=== PATIENT | male | born 1975 | race Caucasian/White ===

== ENCOUNTER 2019-05-09 19:57 | Inpatient (IN) | payer MEDICAID ==
[2019-05-09 21:18] LABS: ADD MAN DIFF? NO
[2019-05-09 21:19] LABS: BASOPHILS % 0.2 % (0.0-2.0); EOSINOPHILS % 0.5 % (0.0-7.0); HEMATOCRIT 33.2 % (42.0-52.0); HEMOGLOBIN 9.9 g/dl (14.0-18.0); LYMPHOCYTES # 1.9 10^3/ul (0.8-2.9); LYMPHOCYTES % 23.7 % (15.0-51.0); MEAN CORPUSCULAR HEMOGLOBIN 23.7 pg (29.0-33.0); MEAN CORPUSCULAR HGB CONC 29.8 g/dl (32.0-37.0); MEAN CORPUSCULAR VOLUME 79.4 fl (82.0-101.0); MEAN PLATELET VOLUME 7.9 fl (7.4-10.4); MONOCYTE # 0.8 10^3/ul (0.3-0.9); MONOCYTES % 10.3 % (0.0-11.0); NEUTROPHILS % 61.5 % (39.0-77.0); PLATELET COUNT 706 10^3/UL (140-415); RED BLOOD COUNT 4.18 10^6/ul (4.70-6.10); RED CELL DISTRIBUTION WIDTH 20.3 % (11.5-14.5)
[2019-05-09 21:19] LABS: WHITE BLOOD COUNT 8.2 10^3/ul (4.8-10.8)
[2019-05-09] MEDS: ASPIRIN 81 MG TAB PO (21:21)
[2019-05-09 21:22] LABS: PATH REVIEW? YES
[2019-05-09] MEDS: NITROGLYCERIN 2% 1 GM OINT PKT TD (21:23)
[2019-05-09] MEDS: NITROGLYCERIN (SL) 0.4 MG TAB SL (21:23)
[2019-05-09 21:45] LABS: ANION GAP 8 (5-13); BLOOD UREA NITROGEN 17 mg/dl (7-20); CALCIUM 8.2 mg/dl (8.4-10.2); CARBON DIOXIDE 27 mmol/L (21-31); CHLORIDE 100 mmol/L (97-110); CREATININE 0.85 mg/dl (0.61-1.24); Estimated GFR > 60 mL/min (>60); GLUCOSE 117 mg/dl (70-220); POTASSIUM 4.1 mmol/L (3.5-5.1); SODIUM 135 mmol/L (135-144)
[2019-05-09 21:56] LABS: TROPONIN-I < 0.012 ng/ml (0.000-0.120)
[2019-05-09 22:32] LABS: ANISOCYTOSIS 1+ (0-0); BAND NEUTROPHILS #M 0.3 10^3/ul (0.0-0.6); BAND NEUTROPHILS % (M) 4 % (0-4); EOSINOPHILS % (M) 1 % (0-7); GIANT THROMBO% (M) 3 % (0-0); LYMPHOCYTES #M 2.5 10^3/ul (0.8-2.9); LYMPHOCYTES % (M) 31 % (15-51); MICROCYTOSIS 1+ (0-0); MONOCYTE #M 0.4 10^3/ul (0.3-0.9); MONOCYTES % (M) 5 % (0-11); OVALOCYTES 1+ (0-0); PLATELET ESTIMATE INCREASED; POIKILOCYTOSIS 1+ (0-0); POLYCHROMASIA 1+ (0-0); SEG NEUT #M 4.9 10^3/ul (1.6-7.5); SEGMENTED NEUTROPHILS (M) % 59 % (39-77); SMUDGE%M 25 % (0-0)
[2019-05-09] MEDS: morphine 4 MG/ML VIAL IV (22:52)
[2019-05-09] MEDS: ONDANSETRON 4 MG INJ IV (22:52)
[2019-05-09] MEDS ORDERED: ONDANSETRON 4 MG INJ IV (23:00)
[2019-05-10] MEDS: ACETAMINOPHEN 325 MG TAB PO ×4 (00:28→19:48)
[2019-05-10] MEDS ORDERED: NACL 0.9% 3 ML SYG IV (00:30)
[2019-05-10] MEDS ORDERED: NITROGLYCERIN (SL) 0.4 MG TAB SL (00:30)
[2019-05-10] MEDS ORDERED: HYDROCODONE/APAP (5/325) TAB PO ×3 (04:00→08:30)
[2019-05-10 04:08] LABS: CREATINE KINASE < 20 IU/L (23-200)
[2019-05-10 04:13] LABS: CK-MB < 0.22 ng/ml (0.0-2.4); TROPONIN-I < 0.012 ng/ml (0.000-0.120)
[2019-05-10] MEDS: KETOROLAC 30 MG INJ IV (04:22)
[2019-05-10] MEDS: PANTOPRAZOLE (EC) 40 MG TAB PO (05:53)
[2019-05-10] MEDS: ASPIRIN 81 MG TAB PO (08:06)
[2019-05-10] MEDS: MESALAMINE (EC) 400 MG CAP PO ×2 (08:07→20:30)
[2019-05-10] MEDS: HEPARIN 5,000 UNIT/1 ML VIAL SC ×2 (08:10→20:53)
[2019-05-10] MEDS ORDERED: NON-FORMULARY/PATIENT OWN MED (Omeprazole* 40 MG) PO (09:00)
[2019-05-10 09:08] LABS: CREATINE KINASE < 20 IU/L (23-200)
[2019-05-10 09:14] LABS: CK-MB < 0.22 ng/ml (0.0-2.4); TROPONIN-I < 0.012 ng/ml (0.000-0.120)
[2019-05-10 09:19] LABS: ADD MAN DIFF? NO
[2019-05-10 09:22] LABS: BASOPHILS % 0.2 % (0.0-2.0); EOSINOPHILS # 0.1 10^3/ul (0.0-0.5); HEMATOCRIT 30.5 % (42.0-52.0); LYMPHOCYTES # 1.4 10^3/ul (0.8-2.9); LYMPHOCYTES % 13.9 % (15.0-51.0); MEAN CORPUSCULAR HEMOGLOBIN 23.6 pg (29.0-33.0); MEAN CORPUSCULAR HGB CONC 29.5 g/dl (32.0-37.0); MEAN CORPUSCULAR VOLUME 79.8 fl (82.0-101.0); MEAN PLATELET VOLUME 8.1 fl (7.4-10.4); MONOCYTE # 0.7 10^3/ul (0.3-0.9); MONOCYTES % 6.7 % (0.0-11.0); NEUTROPHIL # 7.7 10^3/ul (1.6-7.5); NEUTROPHILS % 76.6 % (39.0-77.0); PLATELET COUNT 690 10^3/UL (140-415); RED BLOOD COUNT 3.82 10^6/ul (4.70-6.10); RED CELL DISTRIBUTION WIDTH 20.3 % (11.5-14.5)
[2019-05-10 09:22] LABS: WHITE BLOOD COUNT 10.1 10^3/ul (4.8-10.8)
[2019-05-10 09:30] LABS: ALANINE AMINOTRANSFERASE 19 IU/L (13-69); ALBUMIN 3.2 g/dl (3.3-4.9); ALBUMIN/GLOBULIN RATIO 1.18; ALKALINE PHOSPHATASE 56 IU/L (42-121); ANION GAP 9 (5-13); ASPARTATE AMINO TRANSFERASE 15 IU/L (15-46); BILIRUBIN,INDIRECT 0.3 mg/dl (0-1.1); BILIRUBIN,TOTAL 0.3 mg/dl (0.2-1.3); BLOOD UREA NITROGEN 22 mg/dl (7-20); CALCIUM 8.7 mg/dl (8.4-10.2); CARBON DIOXIDE 23 mmol/L (21-31); CHLORIDE 104 mmol/L (97-110); CHOLESTEROL 138 mg/dl (100-200); CREATININE 0.74 mg/dl (0.61-1.24); Estimated GFR > 60 mL/min (>60); GLUCOSE 127 mg/dl (70-220); HDL CHOLESTEROL 23 mg/dl (27-67); LDL CHOLESTEROL,CALCULATED 71 mg/dl; MAGNESIUM 2.2 mg/dl (1.7-2.5); POTASSIUM 3.8 mmol/L (3.5-5.1); SODIUM 136 mmol/L (135-144); TOTAL PROTEIN 5.9 g/dl (6.1-8.1); TRIGLYCERIDES 222 mg/dl (0-149)
[2019-05-10 09:35] LABS: B-TYPE NATRIURETIC PEPTIDE 23 PG/ML (0-125)
[2019-05-10] MEDS: HYDROmorphONE 0.5 MG/0.5 ML SYG IV ×4 (10:09→22:06)
[2019-05-10 11:41] LABS: LIPASE 30 U/L (23-300)
[2019-05-10 11:45] LABS: C-REACTIVE PROTEIN 7.7 mg/dl (0.0-0.9)
[2019-05-10] MEDS: PIPER-TAZO 3.375 GM IV (PMX) 100 ML IVPB ×3 (12:52→23:22)
[2019-05-10] MEDS: SUCRALFATE (100 MG/ML) 10ML CUP PO ×3 (12:52→20:30)
[2019-05-10] MEDS: SOD CHLORIDE 0.9% 1,910 ML IV (12:53)
[2019-05-10 13:05] LABS: ERYTHROCYTE SEDIMENTATION RATE 67 mm/Hr (0-15)
[2019-05-10 13:23] LABS: LACTIC ACID 3.6 mmol/L (0.5-2.0)
[2019-05-10] MEDS: IOHEXOL 14.3 MG(I)/ML (ADULT) BTL PO (14:37)
[2019-05-10] MEDS: SOD CHLORIDE 0.9% 100 ML (16:00)
[2019-05-10] MEDS: IOHEXOL 300MG/ML 150 ML BTL (16:00)
[2019-05-10 17:01] LABS: ADD UMIC YES; UR ASCORBIC ACID NEGATIVE (NEGATIVE); UR BILIRUBIN (Dip) NEGATIVE (NEGATIVE); UR BLOOD (Dip) NEGATIVE (NEGATIVE); UR CLARITY CLOUDY (CLEAR); UR COLOR YELLOW (YELLOW); UR GLUCOSE (Dip) NEGATIVE (NEGATIVE); UR KETONES (Dip) NEGATIVE (NEGATIVE); UR LEUKOCYTE ESTERASE (Dip) NEGATIVE Leu/ul (NEGATIVE); UR MUCUS FEW /HPF (NONE SEEN); UR NITRITE (Dip) NEGATIVE (NEGATIVE); UR RBC 2 /HPF (0-5); UR SPECIFIC GRAVITY (Dip) 1.026 (1.003-1.030); UR TOTAL PROTEIN (Dip) NEGATIVE (NEGATIVE); UR UROBILINOGEN (Dip) NEGATIVE (NEGATIVE); UR WBC 9 /HPF (0-5)
[2019-05-10] MEDS: SOD CHLORIDE 0.9% 1,000 ML IV ×2 (17:40→21:41)
[2019-05-10 20:20] LABS: LACTIC ACID 2.1 mmol/L (0.5-2.0)
[2019-05-11] MEDS: HYDROmorphONE 0.5 MG/0.5 ML SYG IV ×5 (03:49→21:07)
[2019-05-11] MEDS: SOD CHLORIDE 0.9% 1,000 ML IV ×2 (03:52→17:36)
[2019-05-11] MEDS: PANTOPRAZOLE (EC) 40 MG TAB PO (06:07)
[2019-05-11] MEDS: PIPER-TAZO 3.375 GM IV (PMX) 100 ML IVPB ×4 (06:07→23:34)
[2019-05-11] MEDS: ASPIRIN 81 MG TAB PO (09:05)
[2019-05-11] MEDS: SUCRALFATE (100 MG/ML) 10ML CUP PO ×4 (09:05→21:17)
[2019-05-11] MEDS: MESALAMINE (EC) 400 MG CAP PO ×2 (09:05→21:17)
[2019-05-11] MEDS: HEPARIN 5,000 UNIT/1 ML VIAL SC ×2 (09:46→22:05)
[2019-05-11 15:45] LABS: ADD MAN DIFF? NO
[2019-05-11 15:47] LABS: BASOPHILS % 0.2 % (0.0-2.0); EOSINOPHILS # 0.1 10^3/ul (0.0-0.5); EOSINOPHILS % 1.1 % (0.0-7.0); HEMATOCRIT 28.4 % (42.0-52.0); HEMOGLOBIN 8.5 g/dl (14.0-18.0); LYMPHOCYTES # 1.6 10^3/ul (0.8-2.9); MEAN CORPUSCULAR HEMOGLOBIN 24.1 pg (29.0-33.0); MEAN CORPUSCULAR HGB CONC 29.9 g/dl (32.0-37.0); MEAN CORPUSCULAR VOLUME 80.7 fl (82.0-101.0); MEAN PLATELET VOLUME 7.9 fl (7.4-10.4); MONOCYTE # 0.7 10^3/ul (0.3-0.9); MONOCYTES % 11.8 % (0.0-11.0); NEUTROPHIL # 3.2 10^3/ul (1.6-7.5); NEUTROPHILS % 57.1 % (39.0-77.0); PLATELET COUNT 560 10^3/UL (140-415); RED BLOOD COUNT 3.52 10^6/ul (4.70-6.10); RED CELL DISTRIBUTION WIDTH 20.7 % (11.5-14.5)
[2019-05-11 15:47] LABS: WHITE BLOOD COUNT 5.6 10^3/ul (4.8-10.8)
[2019-05-11 16:09] LABS: ALANINE AMINOTRANSFERASE 18 IU/L (13-69); ALBUMIN 2.9 g/dl (3.3-4.9); ALBUMIN/GLOBULIN RATIO 0.93; ALKALINE PHOSPHATASE 43 IU/L (42-121); ANION GAP 6 (5-13); ASPARTATE AMINO TRANSFERASE 16 IU/L (15-46); BILIRUBIN,INDIRECT 0.3 mg/dl (0-1.1); BILIRUBIN,TOTAL 0.3 mg/dl (0.2-1.3); BLOOD UREA NITROGEN 4 mg/dl (7-20); CALCIUM 7.6 mg/dl (8.4-10.2); CARBON DIOXIDE 25 mmol/L (21-31); CHLORIDE 103 mmol/L (97-110); CREATININE 0.77 mg/dl (0.61-1.24); Estimated GFR > 60 mL/min (>60); GLUCOSE 83 mg/dl (70-220); IRON 14 ug/dl (35-150); POTASSIUM 3.7 mmol/L (3.5-5.1); SODIUM 134 mmol/L (135-144)
[2019-05-11 16:18] LABS: % IRON SATURATION 6 % SAT (22-52); TOTAL IRON BINDING CAPACITY 248 ug/dl (241-421)
[2019-05-11 16:57] LABS: MYELOPEROXIDASE ANTIBODY <1.0 AI; PROTEINASE-3 ANTIBODY <1.0 AI
[2019-05-11] MEDS: METHYLPREDNISOLONE 40 MG INJ IV ×2 (17:33→21:17)
[2019-05-12] MEDS: HYDROmorphONE 0.5 MG/0.5 ML SYG IV ×7 (00:16→22:00)
[2019-05-12] MEDS: PANTOPRAZOLE (EC) 40 MG TAB PO (05:47)
[2019-05-12] MEDS: SOD CHLORIDE 0.9% 1,000 ML IV ×2 (05:48→15:21)
[2019-05-12] MEDS: PIPER-TAZO 3.375 GM IV (PMX) 100 ML IVPB ×3 (05:49→17:44)
[2019-05-12 05:56] LABS: WHITE BLOOD COUNT 3.7 10^3/ul (4.8-10.8)
[2019-05-12 05:56] LABS: ADD MAN DIFF? YES; HEMATOCRIT 30.6 % (42.0-52.0); MEAN CORPUSCULAR HEMOGLOBIN 23.8 pg (29.0-33.0); MEAN CORPUSCULAR HGB CONC 29.4 g/dl (32.0-37.0); MEAN PLATELET VOLUME 8.2 fl (7.4-10.4); PLATELET COUNT 641 10^3/UL (140-415); POSITIVE DIFF @See below; RED BLOOD COUNT 3.78 10^6/ul (4.70-6.10); RED CELL DISTRIBUTION WIDTH 20.5 % (11.5-14.5)
[2019-05-12 06:45] LABS: ANION GAP 7 (5-13); BLOOD UREA NITROGEN 3 mg/dl (7-20); CALCIUM 8.5 mg/dl (8.4-10.2); CARBON DIOXIDE 27 mmol/L (21-31); CHLORIDE 106 mmol/L (97-110); CREATININE 0.69 mg/dl (0.61-1.24); Estimated GFR > 60 mL/min (>60); GLUCOSE 138 mg/dl (70-220); MAGNESIUM 2.2 mg/dl (1.7-2.5); PHOSPHORUS 3.9 mg/dl (2.5-4.9); POTASSIUM 4.7 mmol/L (3.5-5.1); SODIUM 140 mmol/L (135-144)
[2019-05-12 08:09] LABS: ANISOCYTOSIS 2+ (0-0); BAND NEUTROPHILS #M 0.6 10^3/ul (0.0-0.6); BAND NEUTROPHILS % (M) 18 % (0-4); BURR CELLS 2+ (0-0); HYPOCHROMASIA 1+ (0-0); LYMPHOCYTES #M 0.2 10^3/ul (0.8-2.9); LYMPHOCYTES % (M) 7 % (15-51); METAMYELOCYTES #M 0.1 10^3/ul (0.0-0.0); METAMYELOCYTES %M 3 % (0-0); MICROCYTOSIS 2+ (0-0); MONOCYTES % (M) 1 % (0-11); OVALOCYTES 1+ (0-0); PLATELET ESTIMATE INCREASED; POIKILOCYTOSIS 2+ (0-0); POLYCHROMASIA 3+ (0-0); REACTIVE LYMPHOCYTES #M 0.1 10^3/ul (0.0-0.0); REACTIVE LYMPHOCYTES% (M) 5 % (0-0); SEG NEUT #M 2.5 10^3/ul (1.6-7.5); SEGMENTED NEUTROPHILS (M) % 66 % (39-77); SMUDGE%M 1 % (0-0)
[2019-05-12] MEDS: METHYLPREDNISOLONE 40 MG INJ IV ×2 (08:23→21:59)
[2019-05-12] MEDS: SUCRALFATE (100 MG/ML) 10ML CUP PO ×4 (08:23→21:58)
[2019-05-12] MEDS: ASPIRIN 81 MG TAB PO (08:23)
[2019-05-12] MEDS: MESALAMINE (EC) 400 MG CAP PO ×2 (08:23→21:59)
[2019-05-12] MEDS: HEPARIN 5,000 UNIT/1 ML VIAL SC ×2 (08:29→22:21)
[2019-05-12] MEDS: SOD FERRIC GLUC COMPLX 125 MG in SOD CHLORIDE 0.9% 100 ML IVPB (15:20)
[2019-05-13] MEDS: SOD CHLORIDE 0.9% 1,000 ML IV ×3 (00:58→11:03)
[2019-05-13] MEDS: HYDROmorphONE 0.5 MG/0.5 ML SYG IV ×7 (01:29→22:23)
[2019-05-13] MEDS: PIPER-TAZO 3.375 GM IV (PMX) 100 ML IVPB ×3 (01:35→12:13)
[2019-05-13] MEDS: ONDANSETRON 4 MG INJ IV (01:35)
[2019-05-13 05:26] LABS: ADD MAN DIFF? NO
[2019-05-13 05:31] LABS: WHITE BLOOD COUNT 12.2 10^3/ul (4.8-10.8)
[2019-05-13 05:31] LABS: HEMATOCRIT 30.6 % (42.0-52.0); HEMOGLOBIN 9.2 g/dl (14.0-18.0); LYMPHOCYTES # 1.1 10^3/ul (0.8-2.9); LYMPHOCYTES % 9.2 % (15.0-51.0); MEAN CORPUSCULAR HGB CONC 30.1 g/dl (32.0-37.0); MEAN CORPUSCULAR VOLUME 79.9 fl (82.0-101.0); MEAN PLATELET VOLUME 8.1 fl (7.4-10.4); MONOCYTE # 0.2 10^3/ul (0.3-0.9); MONOCYTES % 1.5 % (0.0-11.0); NEUTROPHIL # 10.8 10^3/ul (1.6-7.5); NEUTROPHILS % 88.3 % (39.0-77.0); RED BLOOD COUNT 3.83 10^6/ul (4.70-6.10)
[2019-05-13] MEDS: PANTOPRAZOLE (EC) 40 MG TAB PO (05:32)
[2019-05-13 05:49] LABS: ANION GAP 6 (5-13); BLOOD UREA NITROGEN 5 mg/dl (7-20); CALCIUM 8.5 mg/dl (8.4-10.2); CARBON DIOXIDE 27 mmol/L (21-31); CHLORIDE 108 mmol/L (97-110); CREATININE 0.63 mg/dl (0.61-1.24); Estimated GFR > 60 mL/min (>60); GLUCOSE 153 mg/dl (70-220); MAGNESIUM 2.2 mg/dl (1.7-2.5); PHOSPHORUS 2.6 mg/dl (2.5-4.9); POTASSIUM 4.3 mmol/L (3.5-5.1); SODIUM 141 mmol/L (135-144)
[2019-05-13 06:25] LABS: PLATELET COUNT 753 10^3/UL (140-415)
[2019-05-13] MEDS: SUCRALFATE (100 MG/ML) 10ML CUP PO ×4 (08:31→20:45)
[2019-05-13] MEDS: ASPIRIN 81 MG TAB PO (08:32)
[2019-05-13] MEDS: METHYLPREDNISOLONE 40 MG INJ IV ×2 (08:32→20:45)
[2019-05-13] MEDS: MESALAMINE (EC) 400 MG CAP PO ×2 (08:32→20:46)
[2019-05-13] MEDS: HEPARIN 5,000 UNIT/1 ML VIAL SC ×2 (08:43→21:56)
[2019-05-13] MEDS: MERCAPTOPURINE 50 MG XX (09:00)
[2019-05-13] MEDS: IOHEXOL 100 ML (11:29)
[2019-05-13] MEDS: SOD CHLORIDE 0.9% 100 ML (11:30)
[2019-05-13] MEDS: SOD FERRIC GLUC COMPLX 125 MG in SOD CHLORIDE 0.9% 100 ML IVPB (12:13)
[2019-05-13] MEDS: DEXTROSE 5%-0.45% NACL 1,000 ML IV (14:14)
[2019-05-13] MEDS: BACLOFEN 10 MG TAB PO ×2 (14:14→20:46)
[2019-05-13] MEDS: metroNIDAZOLE 250 MG TAB PO ×2 (18:57→22:24)
[2019-05-13] MEDS: RIFAXIMIN 200 MG TAB PO ×2 (18:57→22:23)
[2019-05-14] MEDS: HYDROmorphONE 0.5 MG/0.5 ML SYG IV ×7 (02:27→22:15)
[2019-05-14] MEDS: metroNIDAZOLE 250 MG TAB PO ×3 (05:46→21:40)
[2019-05-14] MEDS: LEVOFLOXACIN 500 MG TAB PO (05:46)
[2019-05-14] MEDS: PANTOPRAZOLE (EC) 40 MG TAB PO (05:46)
[2019-05-14 05:54] LABS: ADD MAN DIFF? NO
[2019-05-14 06:08] LABS: BASOPHILS % 0.1 % (0.0-2.0); HEMATOCRIT 29.2 % (42.0-52.0); HEMOGLOBIN 8.6 g/dl (14.0-18.0); LYMPHOCYTES # 1.5 10^3/ul (0.8-2.9); LYMPHOCYTES % 9.7 % (15.0-51.0); MEAN CORPUSCULAR HEMOGLOBIN 23.7 pg (29.0-33.0); MEAN CORPUSCULAR HGB CONC 29.5 g/dl (32.0-37.0); MEAN CORPUSCULAR VOLUME 80.4 fl (82.0-101.0); MEAN PLATELET VOLUME 8.4 fl (7.4-10.4); MONOCYTE # 0.4 10^3/ul (0.3-0.9); MONOCYTES % 2.8 % (0.0-11.0); NEUTROPHIL # 12.9 10^3/ul (1.6-7.5); NEUTROPHILS % 83.7 % (39.0-77.0); NUCLEATED RED BLOOD CELLS% 0.1 /100WBC (0.0-0.0); PLATELET COUNT 723 10^3/UL (140-415); RED BLOOD COUNT 3.63 10^6/ul (4.70-6.10); RED CELL DISTRIBUTION WIDTH 20.7 % (11.5-14.5)
[2019-05-14 06:08] LABS: WHITE BLOOD COUNT 15.4 10^3/ul (4.8-10.8)
[2019-05-14 06:28] LABS: ANION GAP 6 (5-13); BLOOD UREA NITROGEN 7 mg/dl (7-20); CALCIUM 8.3 mg/dl (8.4-10.2); CARBON DIOXIDE 30 mmol/L (21-31); CHLORIDE 104 mmol/L (97-110); CREATININE 0.59 mg/dl (0.61-1.24); Estimated GFR > 60 mL/min (>60); GLUCOSE 134 mg/dl (70-220); MAGNESIUM 2.2 mg/dl (1.7-2.5); PHOSPHORUS 2.5 mg/dl (2.5-4.9); POTASSIUM 3.7 mmol/L (3.5-5.1); SODIUM 140 mmol/L (135-144)
[2019-05-14] MEDS: METHYLPREDNISOLONE 40 MG INJ IV ×2 (08:53→21:38)
[2019-05-14] MEDS: MESALAMINE (EC) 400 MG CAP PO ×2 (08:56→21:39)
[2019-05-14] MEDS: BACLOFEN 10 MG TAB PO ×3 (08:56→21:39)
[2019-05-14] MEDS: ASPIRIN 81 MG TAB PO (08:56)
[2019-05-14] MEDS: RIFAXIMIN 200 MG TAB PO ×2 (08:56→13:19)
[2019-05-14] MEDS: SUCRALFATE (100 MG/ML) 10ML CUP PO ×4 (10:03→21:38)
[2019-05-14] MEDS: HEPARIN 5,000 UNIT/1 ML VIAL SC ×2 (10:07→21:40)
[2019-05-14] MEDS: SOD FERRIC GLUC COMPLX 125 MG in SOD CHLORIDE 0.9% 100 ML IVPB (13:19)
[2019-05-14] MEDS: DEXTROSE 5%-0.45% NACL 1,000 ML IV (17:48)
[2019-05-14] MEDS: ONDANSETRON 4 MG INJ IV (21:43)
[2019-05-15] MEDS: HYDROmorphONE 0.5 MG/0.5 ML SYG IV ×2 (02:15→06:03)
[2019-05-15 05:51] LABS: ABNORMAL IP MESSAGE 1; HEMATOCRIT 31.7 % (42.0-52.0); HEMOGLOBIN 9.6 g/dl (14.0-18.0); MEAN CORPUSCULAR HEMOGLOBIN 24.4 pg (29.0-33.0); MEAN CORPUSCULAR HGB CONC 30.3 g/dl (32.0-37.0); MEAN CORPUSCULAR VOLUME 80.7 fl (82.0-101.0); MEAN PLATELET VOLUME 8.2 fl (7.4-10.4); NUCLEATED RED BLOOD CELLS% 1.8 /100WBC (0.0-0.0); PLATELET COUNT 752 10^3/UL (140-415); POSITIVE DIFF @See below; RED BLOOD COUNT 3.93 10^6/ul (4.70-6.10)
[2019-05-15 05:51] LABS: WHITE BLOOD COUNT 16.9 10^3/ul (4.8-10.8)
[2019-05-15 05:56] LABS: ADD MAN DIFF? YES
[2019-05-15] MEDS: metroNIDAZOLE 250 MG TAB PO (06:03)
[2019-05-15] MEDS: LEVOFLOXACIN 500 MG TAB PO (06:03)
[2019-05-15] MEDS: PANTOPRAZOLE (EC) 40 MG TAB PO (06:03)
[2019-05-15 06:36] LABS: C-REACTIVE PROTEIN 2.6 mg/dl (0.0-0.9)
[2019-05-15 07:10] LABS: ANISOCYTOSIS 1+ (0-0); BAND NEUTROPHILS #M 1.6 10^3/ul (0.0-0.6); BAND NEUTROPHILS % (M) 10 % (0-4); BURR CELLS 3+ (0-0); ERYTHROBLAST% (NRBC) (M) 1 % (0-0); HYPOCHROMASIA 1+ (0-0); LYMPHOCYTES #M 1.5 10^3/ul (0.8-2.9); LYMPHOCYTES % (M) 9 % (15-51); METAMYELOCYTES #M 0.3 10^3/ul (0.0-0.0); METAMYELOCYTES %M 2 % (0-0); MICROCYTOSIS 1+ (0-0); MONOCYTE #M 1.1 10^3/ul (0.3-0.9); MONOCYTES % (M) 7 % (0-11); MYELOCYTES #M 0.6 10^3/ul (0.0-0.0); MYELOCYTES % (M) 4 % (0-0); OVALOCYTES 1+ (0-0); PLATELET ESTIMATE INCREASED; POIKILOCYTOSIS 3+ (0-0); POLYCHROMASIA 3+ (0-0); PROMYELOCYTES #M 0.1 10^3/ul (0-0); PROMYELOCYTES % (M) 1 % (0-0); REACTIVE LYMPHOCYTES #M 0.6 10^3/ul (0.0-0.0); REACTIVE LYMPHOCYTES% (M) 4 % (0-0); SEG NEUT #M 10.9 10^3/ul (1.6-7.5); SEGMENTED NEUTROPHILS (M) % 63 % (39-77); SMUDGE%M 48 % (0-0)
[2019-05-15] MEDS: ASPIRIN 81 MG TAB PO (08:34)
[2019-05-15] MEDS: MESALAMINE (EC) 400 MG CAP PO (08:34)
[2019-05-15] MEDS: METHYLPREDNISOLONE 40 MG INJ IV (08:34)
[2019-05-15] MEDS: SUCRALFATE (100 MG/ML) 10ML CUP PO ×2 (08:34→12:50)
[2019-05-15] MEDS: HEPARIN 5,000 UNIT/1 ML VIAL SC (09:27)
[2019-05-15] MEDS: BACLOFEN 10 MG TAB PO (12:51)
== END 2019-05-15 13:35 | disposition still patient (30) | DRG 872 ==
LOC: 6WM 22:37 → E/R 19:57 → 6WM 05-10 23:15
DX: A41.9 Sepsis, unspecified organism (principal); K51.90 Ulcerative colitis, unspecified, without complications; D64.9 Anemia, unspecified
CPT/HCPCS: 36415; 71045; 71275; 74177; 80048; 80053; 80061; 81001; 82550; 82553; 83036; 83540; 83605; 83690; 83735; 83880; 84100; 84443; 84484; 85025; 85651; 86021; 86140; 87040-91; 87045; 87075; 87205; 93005; 93306; 99285-25; G0378